=== PATIENT | male | born 1945 | race Caucasian/White ===

== ENCOUNTER → 2019-05-16 | Day surgery (SDC) | payer MEDICARE ==
[~2019-05-16] MED LIST: AMLO10TA8 PO; ATOR20TA58 PO; HYDROmorphone 2 MG/ML VIAL IV PRN; IV RINGERS,LACTATED 1000ML 1,000 ML IV SCH; LIDOCAINE 1% PF 2 ML VIAL. ID PRN; LINA5TAB PO; LISI2.5T PO; MAGN200T PO; METF10007 PO; MORPHINE SULFATE 2 MG/ML VIAL. IV PRN; MULT1TAB52 PO; ONDANSETRON PF 4 MG/2 ML VIAL. IV PRN; PROCHLORPERAZINE 10 MG/2 ML VIAL. IV PRN; PROPOFOL 40 ML IV ONE; TACR1CAP4 PO; TAMS0.4C97 PO; fentaNYL PF VIAL 100 MCG/2 ML VIAL IV PRN
[2019-05-16 07:50] VITALS: BP 111/63
== END | disposition home or self-care (01) ==
LOC: ENDOS 05:42
PROVIDERS: ATTEND Internal Medicine Gastroenterology
DX: Z12.11 Encounter for screening for malignant neoplasm of colon (principal); K57.30 Diverticulosis of large intestine without perforation or abscess without bleeding; K64.0 First degree hemorrhoids; F15.90 Other stimulant use, unspecified, uncomplicated; Z86.010 Personal history of colon polyps
CPT/HCPCS: G0105; J2704; 45378